=== PATIENT | male | born 1975 | race Caucasian/White ===

== ENCOUNTER 2023-12-09 06:27 | Outpatient (OUT) | payer OTHER, SELFPAY ==
[2023-12-09 07:09] LABS: Chol HDL Ratio 3.3; Cholesterol 152 mg/dL (<=200); Glucose 111 mg/dL (74-106); HDL Cholesterol 46 mg/dL (40-60); LDL Cholesterol Calculated 92.8 mg/dL; Triglycerides 66 mg/dL (<=150); VLDL CHOLESTEROL 13.2 mg/dL
== END 2023-12-09 06:28 | disposition home or self-care (01) ==
LOC: LAB 06:32
PROVIDERS: PCP Internal Medicine; Visit Provider Internal Medicine
DX: Z00.00 Encounter for general adult medical examination without abnormal findings (principal)
CPT/HCPCS: 36415; 80061; 82947

== ENCOUNTER 2025-01-11 06:52 | Outpatient (OUT) | payer OTHER, SELFPAY ==
--- OUTSIDE RECORDS SUMMARY | 2025-01-11 06:55 | XMS_ITS | CCD ---
Author Organization [facility] Care Team Providers Care Forensic Materials Engineer Name Role Phone DR VASQUEZ ELIZABETH Attending Unavailable GLENN, DR RICHTER Consulting Unavailable GLENN, DR RICHTER Primary Care Unavailable GLENN, DR RICHTER Admitting Unavailable Vasquez Elizabeth Unavailable Vasquez Elizabeth DO Primary Care Provider Vasquez Elizabeth DO Attending Provider Medications Current Medications MedicationDrug Class(es)DatesSig (Normalized)Sig (Original)amLODIPine 10 mg oral tablet (14 sources)Dihydropyridine Calcium Channel BlockerStart: 12-04-2023 End: 26-40-9317sgvv 1 tablet by mouth once dailyAmlodipine 10 mg tablet Active 10 MG PO Daily December 01, 2024 11:32am Complies with drug therapyStart: 08-18-2023 End: 51-38-0145rwbf 1 tablet by mouth once dailyAmlodipine 10 mg tablet Discontinued 0 .ROUTE .COMPLEX August 18, 2023 5:16pm December 04, 2023 1 2:03pm TAKE 1 TABLET BY MOUTH EVERY DAYStart: 05-23-2021 End: 83-97-5464aibf 1 tablet by mouth once dailyAmlodipine 10 mg tablet Discontinued 10 MG PO Daily May 23, 2021 12:00am August 18, 2023 5:16pm celecoxib 200 mg oral capsule (3 sources)Nonsteroidal Anti-inflammatory DrugStart: 03-56-8992susk 1 capsule by mouth every twenty-four hoursCelecoxib 200 MG 1 capsule with food Orally Once a day for 30 days Sep, ActivehydroCHLOROthiazide 12.5 mg / telmisartan 80 mg oral tablet (1 source)Thiazide Diuretic, Angiotensin 2 Receptor BlockerStart: 66-17-1159dijh 1 tablet by mouth once dailyTelmisartan-Hydrochlorothiazid 80-12.5 mg tablet Active 1 TAB PO Daily December 01, 2024 12:00am Complies with drug therapyolopatadine 1 mg/ml ophthalmic solution (3 sources)Histamine-1 Receptor InhibitorStart: 37-03-9955bgmk 1 drop(s) into the eye(s) twice dailyOlopatadine HCl 0.1 % 1 drop into affected eye Ophthalmic Twice a day for 30 days Mar, Active Completed/Discontinued Medications MedicationDrug Class(es)DatesSig (Normalized)Sig (Original)losartan potassium 100 mg oral tablet (10 sources)Angiotensin 2 Receptor BlockerStart: 08-23-2024 End: 84-73-4079qgfx 1 tablet by mouth once dailyLosartan 100 mg tablet Discontinued 0 .ROUTE .COMPLEX November 21, 2024 8:50am December 01, 2024 11:33am TAKE 1 TABLET BY MOUTH EVERY DAY FOR 90 DAYSStart: 05-23-2021 End: 43-73-5589lypm 1 tablet by mouth once dailyLosartan 100 mg tablet Discontinued 100 MG PO Daily December 04, 2023 12:02pm August 23, 2024 7:38am Problems Active Problems Problem ClassificationProblemDateDocumented DateEpisodic/ChronicAbdominal hernia (4 sources)Umbilical hernia; Translations: [Umbilical hernia without obstruction or gangrene]22-35-5845PdamtiodNlmnjurspm disorders (6 sources)Gastro-esophageal reflux disease with esophagitis; Translations: [Gastroesophageal reflux disease with esophagitis without hemorrhage]12-02-2023 ChronicEssential hypertension (9 sources)Essential hypertension; Translations: [Essential (primary) hypertension]ChronicOsteoarthritis (5 sources)Osteoarthritis of left hip joint; Translations: [Unilateral primary osteoarthritis, left hip]ChronicOther nutritional; endocrine; and metabolic disorders (2 sources)Obesity; Translations: [Obesity, unspecified]03-23-4156DzjzmzpFdcdn screening for suspected conditions (not mental disorders or infectious disease) (3 sources)Patient encounter status; Translations: [Encounter for screening for malignant neoplasm of prostate]18-06-3430MixtusluQiyndiof codes; unclassified (6 sources)Obstructive sleep apnea syndrome; Translations: [Obstructive sleep apnea (adult) (pediatric)]59-40-5177GvrsgbvOswtteim codes; unclassified (2 sources)Obstructive sleep apnea (adult) (pediatric)ChronicSubstance-related disorders (5 sources)Tobacco dependence in remission; Translations: [Nicotine dependence, cigarettes, in remission]Chronic Past or Other Problems Problem ClassificationProblemDateDocumented DateEpisodic/ChronicEsophageal disorders (2 sources)Esophageal disorders Results Test NameValueInterpretationReference RangeDelmiuniversity hospitals parma medical centerDominik 05-24-2021 Specimen: [id number] Received: 05/24/21 Status: VALERIA Sandoval Num: [id number] Spec Type: Surgical Subm Dr: Ben Barrios MD Tissues: A Colon - Polyp (TRANSVERSE COLON) Procedures: HE Stain/4, Gross/Micro L4 Patient Age/Sex Location Account Attending Physician Nuno Ruiz 45/M [id number] Ben Barrios MD SPEC NUM: [id number] RECD: 05/24/21 STATUS: VALERIA SANDOVAL NUM: [id number] SUKHDEV: 05/24/21- [facility] DR: Ben Barrios MD ENTERED: 05/24/[address] [facility] [address]: SPEC TYPE: Surgical DEPT: S ORDERED: HE Stain/4, Gross/Micro L4 ORDERED: HE Stain/4, Gross/Micro L4 Pathological Diagnosis Transverse colon polyps, polypectomy: - Multiple fragments of tubular adenoma. Clinical Information Positive cologuard Gross Description Received in formalin labeled with the patient's name, number and transverse colon polyps are multiple mathews tissue fragments measuring up to 0.6 cm. The resection margin on the 2 largest tissue fragments are differentially inked and each fragment is bisected. Entirely submitted in two cassettes labeled A1-A2. Type of Fixative: 10% Neutral Buffered Formalin (/YJ) Microscopic Description Four glass slides with H E stained material have been examined. The microscopic findings support the above pathologic diagnosis. Specimen: Received: 05/24/21 Status: EDNAHema Sandoval Num: [id number] Spec Type: Surgical Subm Dr: Ben Barrios MD Tissues: A Colon - Polyp (TRANSVERSE COLON) Procedures: HE Stain/4, Gross/Micro L4 Patient: Nuno Ruiz [id number] (Continued) Specimen: [id number] Received: 05/24/21 (Continued) Signed (signature on file) Licha Kelly MD 05/25/21 1707 Specimen: [id number] Received: 05/24/21 Status: EDNAHema Sandoval Num: [id number] Spec Type: Surgical Subm Dr: Ben Barrios MD Tissues: A Colon - Polyp (TRANSVERSE COLON) Procedures: BABITA Benitez/4, Gross/Micro L4 Patient: Nuno Ruiz [id number] (Continued) Specimen: Received: 05/24/21 (Continued) CPT Codes 25297 Specimen: Received: 05/24/21 Status: VALERIA Sandoval Num: [id number] Spec Type: Surgical Subm Dr: Ben Barrios MD Tissues: A Colon - Polyp (TRANSVERSE COLON) Procedures: BABITA Benitez/Laura, Gross/Elizabeth L4 Patient: Nuno Ruiz [id number] (Continued) Signed (signature on file) Licha Kelly MD 05/25/21 1702 [facility] HospitalC[facility] Antigenon 89-62-9704CAFUV- AntigenHealthcare Worker?: N Radha Reference Radha Reference Negative SARS-CoV+SARS-CoV-2 (COVID-19) Ag [Presence] in Respiratory specimen by Rapid immunoassay Negative for SARS Antigen by SANJU COVID19 Blank Space Radha Disclaimer Negative results, from patients with symptom Radha Disclaimer onset beyond five days, should be treated as Radha Disclaimer presumptive and confirmation with a molecular Radha Disclaimer assay, if necessary, for patient management, Radha Disclaimer may be performed. Negative results do not rule Radha Disclaimer out COVID-19 and should not be used as the sole Radha Disclaimer basis for treatment or patient management Radha Disclaimer decisions, including infection control decisions. Radha Disclaimer Negative results should be considered in the Radha Disclaimer context of a patient's recent exposures, history Radha Disclaimer and the presence of clinical signs and symptoms Radha Disclaimer consistent with COVID-19. COVID19 Blank Space Radha Disclaimer The Radha SARS Antigen SANJU does not differentiate Radha Disclaimer between SARS-CoV and SARS-CoV-2. COVID19 Blank Space Radha Disclaimer This test was developed and its performance Radha Disclaimer characteristic determined by [employer] and Radha Disclaimer validated at [facility]. This Radha Disclaimer test has not been FDA cleared or approved. This Radha Disclaimer test has been authorized by FDA under an Emergency Use Radha Disclaimer Authorization (EUA). This test has been validated Radha Disclaimer in accordance with the FDA's Guidance Document (Policy Radha Disclaimer for Diagnostics Testing in Laboratories Certified to Radha Disclaimer Perform High Complexity Testing under CLIA prior to Radha Disclaimer Emergency Use Authorization for Coronavirus Radha Disclaimer iseas during the Public Health Emergency) Radha Disclaimer issued on May 20, 2019. This test is only authorized Radha Disclaimer for the duration of time the declaration that Radha Disclaimer circumstances exist justifying the authorization of Radha Disclaimer the emergency use of in vitro diagnostic tests for Radha Disclaimer detection of SARS-CoV-2 virus and/or diagnosis of Radha Disclaimer COVID-19 infection under section 564(b)(1) of the Radha Disclaimer Act, 21 U.S.C. 360bbb-3(b)(1), unless the Radha Disclaimer authorization is terminated or revoked sooner. PERFORMED BY: [place] [id number] PATHOLOGIST SPECIAL PROJECTS COORDINATOR JONO CONTRERAS M.D.NormalTrihealthComment on above: Performed By: #### COVID-19 RADHA, SOFIANEG #### [address] [address] [place]ASofia Ag Negativeon 30-41-3824Rfeam Ag NegativeNegative NormalNegativeTrihealthComment on above:Result Comment: This is a duplicate Radha SARS Antigen (SANJU) result to be used for statistical tracking purpose only. PERFORMED BY: [address] [address] PATHOLOGIST SPECIAL PROJECTS COORDINATOR JONO CONTRERAS M.D.Performed By: #### COVID-19 RADHA, SOFIANEG #### [facility] [address] AUTO DIFFon [id number] #0.1 103/ulNormal0.0-0.1The [facility] HospitalComment on above:Performed By: #### CBC #### [facility] [address] [place] [address] Dr. Syed LoweBasophils/100 WBC (Bld)1.1 %Normal0.2-2.0The [facility] Comment on above:Performed By: #### CBC #### [facility] [address] [place] [address] Dr. Syed Samano #0.2 103/ulNormal0.0-0.7The [facility] HospitalComment on above: Performed By: #### CBC #### [facility] [address] [place] [address] Dr. Syed Kennedyosinophils/100 WBC (Bld)3.2 %Normal0.9-7.0[facility] Comment on above:Performed By: #### CBC #### [facility] [address] [place] [address] Dr. Syed Kennedyrythrocyte distribution width (RBC) [Ratio]12.5 %Zlryka20.0-15.0 The [facility] HospitalComment on above:Performed By: #### CBC #### [facility] [address] [place] [address] Dr. Syed LoweHematocrit (Bld) [Volume fraction]43.7 %Nudfxo23.0-54.0The [facility] HospitalComment on above:Performed By: #### CBC #### [facility] [address] [place] [address] Dr. Syed LoweHemoglobin (Bld) [Mass/Vol]14.9 g/zDJuopjd05.0-18.0The [facility] HospitalComment on above:Performed By: #### CBC #### [facility] [address] [place] [address] Dr. Syed Kaplan #0.11 10e3/ulCritically high0.00-0.03The [facility] Comment on above:Performed By: #### CBC #### [facility] [address] [place] [address] Dr. Syed Kaplan %1.8 %Critically high0.0-0.5The [facility] HospitalComment on above:Performed By: #### CBC #### [facility] [address] [place] [address] Dr. Syed Oneal #1.8 103/ulNormal1.2-3.8The [facility] HospitalComment on above:Performed By: #### CBC #### [facility] [address] [place] [address] Dr. Syed Pritchetthocytes/100 WBC (Bld)28.3 %Oasevz74.5-60.0The [facility] HospitalComment on above:Performed By: #### CBC #### [facility] [address] [place] [address] Dr. Syed EstrellaOHIO VALLEY [facility] DIFF REQNONormalThe [facility] HospitalComment on above: Performed By: #### CBC #### [facility] [address] [place] [address] Dr. Syed Caraballo (RBC) [Entitic mass]28.8 vaMswlio08.9-34.0The [facility] HospitalComment on above:Performed By: #### CBC #### [facility] [address] [place] [address] Dr. Syed Valenzuela (RBC) [Mass/Vol]34.1 g/mDNvebsw98.9-35.2The [facility] HospitalComment on above:Performed By: #### CBC #### [facility] [address] [place] [address] Dr. Syed Valenzuela (RBC) [Entitic vol]84.5 mYSjqyvs18.0-94.0The [facility] HospitalComment on above:Performed By: #### CBC #### [facility] [address] [place] [address] Dr. Syed Orr #0.6 103/ulNormal0.3-0.8The [facility] HospitalComment on above:Performed By: #### CBC #### [facility] [address] [place] [address] Dr. Syed Villarocytes/100 WBC (Bld)9.1 %Normal1.7-12.0The [facility] Comment on above:Performed By: #### CBC #### [facility] [address] [place] [address] Dr. Syed Terry #3.5 103/ulNormal1.4-6.5The [facility] HospitalComment on above:Performed By: #### CBC #### [facility] [address] [place] [address] Dr. Syed Mattautrophils/100 WBC (Bld)56.5 %Cnqlrb18.0-75.0The [facility] HospitalComment on above:Performed By: #### CBC #### [facility] [address] [place] [address] Dr. Syed Mabrylet mean volume (Bld) [Entitic vol]9.7 fLNormal9.5-13.5The [facility] HospitalComment on above:Performed By: #### CBC #### [facility] [address] [place] [address] Dr. Syed HernandezT263 103/ypIqrpsm196-111Tic [facility] HospitalComment on above: Performed By: #### CBC #### [facility] [address] [place] [address] Dr. Syed LoweRBC5.17 106/ulNormal4.70-6.10The [facility] HospitalComment on above:Performed By: #### CBC #### [facility] [address] [place] [address] Dr. Syed LoweWBC6.2 103/ulNormal4.0-11.0The [facility] HospitalComment on above: Performed By: #### CBC #### [facility] [address] [place] [address] Dr. Syed Sotomayor PROFILEon 62-66-9465IDHE-HDL RATIO NORMSProtestant Deaconess HospitalComment on above:Result Comment: 3.3 - 4.4 LOW RISK 4.4 - 7.1 AVERAGE RISK 7.1 - 11.0 MODERATE RISK >11.0 HIGH RISKPerformed By: #### CMP, LIPID #### [facility] [address] [address] [address] Syed LoweCholesterol [Mass/Vol]156 mg/dLNormal<=200[facility] Comment on above:Performed By: #### CMP, LIPID #### [facility] [address] [address] [address] Syed LoweCholesterol in HDL [Mass/Vol]43 mg/dLParkwood Hospital Comment on above:Performed By: #### CMP, LIPID #### [facility] [address] [address] [address] Syed LoweCholesterol in LDL [Mass/Vol]97.6 mg/dLParkwood HospitalComment on above:Performed By: #### CMP, LIPID #### [facility] [address] [address] [address] Syed Gallardoesterchema.total/Cholesterol in HDL [Mass ratio]3.6 {ratio} NormalPremier HealthComment on above:Performed By: #### CMP, LIPID #### [facility] [address] [address] [address] Syed Garcia NORMAL> or = 60 mg/dl - LOW CARDIOVASCULAR RISK <40 mg/dl - HIGH CARDIOVASCULAR RISKParkwood HospitalComment on above:Performed By: #### CMP, LIPID #### [facility] [address] [address] [address] Syed LoweLDL CALC NORMALSEE Newark HospitalComment on above:Result Comment: <100 mg/dl OPTIMAL 100 - 129 mg/dl NEAR OR ABOVE OPTIMAL 130 - 159 mg/dl BORDERLINE HIGH 160 - 189 mg/dl HIGH >190 mg/dl VERY HIGH Performed By: #### CMP, LIPID #### [facility] [address] [address] [address] Syed LoweTriglyceride [Mass/Vol]77 mg/dLNormal<=150The [facility] Comment on above:Performed By: #### CMP, LIPID #### [facility] [address] [address] [address] Syed LoweVLDL CALC15.4 mg/dLNormalThe [facility] HospitalComment on above: Performed By: #### CMP, LIPID #### [facility] [address] [address] [address] Syed LowePROF 14(COMP METB)on 81-54-5225Szgxjzv [Mass/Vol]3.8 g/dLNormal 3.5-5.0The [facility] HospitalComment on above:Performed By: #### CMP, LIPID #### [facility] [address] [place] [address] Dr. Syed LoweAlbumin/Globulin [Mass ratio]1.1 {ratio}NormalThe [facility] HospitalComment on above:Performed By: #### CMP, LIPID #### [facility] [address] [place] [address] Dr. Syed Sosa [Catalytic activity/Vol]72 U/GGeyqso25-222Bnn [facility] HospitalComment on above:Performed By: #### CMP, LIPID #### [facility] [address] [place] [address] Dr. Syed Swanson [Catalytic activity/Vol]23 U/UGxzfbq03-62Xpf [facility] HospitalComment on above:Performed By: #### CMP, LIPID #### [facility] [address] [place] [address] Dr. Syed Christensen gap [Moles/Vol]8.4 mmol/LNormalThe [facility] HospitalComment on above:Performed By: #### CMP, LIPID #### [facility] [address] [place] [address] Dr. Syed LoweAST [Catalytic activity/Vol]13 U/LCritically net63-59Jlq [facility] HospitalComment on above:Performed By: #### CMP, LIPID #### [facility] [address] [address] [address] Syed LoweBilirubin [Mass/Vol]0.5 mg/dLNormal0.2-1.3The [facility] Comment on above:Performed By: #### CMP, LIPID #### [facility] [address] [address] [address] Syed LoweCalcium [Mass/Vol]8.9 mg/dLNormal8.4-10.2The [facility] Comment on above:Performed By: #### CMP, LIPID #### [facility] [address] [address] [address] Syed LoweChloride [Moles/Vol]104 mmol/LSzedzn03-935Oap [facility] Comment on above:Performed By: #### CMP, LIPID #### [facility] [address] [address] [address] Syed LoweCO2 [Moles/Vol]30.2 mmol/LCritically high22.0-30.0The [facility] HospitalComment on above:Performed By: #### CMP, LIPID #### [facility] [address] [address] [address] Syed LoweCreatinine [Mass/Vol]0.95 mg/dLNormal0.66-1.25The [facility] HospitalComment on above:Performed By: #### CMP, LIPID #### [facility] [address] [address] [address] Syed KennedyGFR-AF SOUTH AFRICAN>60Normal>=60The [facility] HospitalComment on above:Performed By: #### CMP, LIPID #### [facility] [address] [address] [address] Syed KennedyGFR-NON AF SOUTH AFRICAN>60Normal>=60The [facility] HospitalComment on above:Performed By: #### CMP, LIPID #### [facility] [address] [place] [address] Dr. Syed LoweGlobulin (S) [Mass/Vol]3.4 g/dLNormalThe [facility] HospitalComment on above:Performed By: #### CMP, LIPID #### [facility] [address] [address] [address] Syed LoweGlucose [Mass/Vol]98 mg/xTOsqrsv24-679QrtPremier Health Comment on above:Performed By: #### CMP, LIPID #### [facility] [address] [address] [address] Syed LowePotassium [Moles/Vol]3.6 mmol/LNormal3.4-5.0The [facility] Comment on above:Performed By: #### CMP, LIPID #### [facility] [address] [address] [address] Syed LoweProtein [Mass/Vol]7.2 g/dLNormal6.1-8.2[facility] Comment on above:Performed By: #### CMP, LIPID #### [facility] [address] [address] [address] Syed LoweSodium [Moles/Vol]139 mmol/XUjirxl727-622Ieu [facility] Comment on above:Performed By: #### CMP, LIPID #### [facility] [address] [address] [address] Syed LoweUrea nitrogen [Mass/Vol]15.0 mg/dLNormal9.0-20.0[facility] HealthComment on above:Performed By: #### CMP, LIPID #### [facility] [address] [address] [address] Syed Domingo nitrogen/Creatinine [Mass ratio]15.8 mg/mgNormalThe [facility] HospitalComment on above:Performed By: #### CMP, LIPID #### [facility] [address] [address] [address] Lynch ChangED Note-Physicianon [id number] Note-PhysicianBasic Information Time Seen: Matt Garcia PA-C 07/22/2020 15:42 Chief Complaint Pt states working with lumbar 1445 cut his left middle finger while lifting lumbar. Tetanus not up to date History of Present Illness 45-year-old male presents emergency department chief complaint of a 2 cm flap laceration to the fat pad of the left middle finger. Patient states that he got his fingertip crushed between lumber while stacking the wood, causing the laceration. He is unsure of his last tetanus immunizationbooster but believes it to be greater than 5 years. He does state that the tip of the fingertip is numb, denies difficulty with range of motion or movement. Review of Systems A 10 point review of systems is negative except as noted above. Medical and Surgical History: Reviewed and noted Social history: Lives at home Tobacco: Denies Physical Exam Vitals & Measurements T: 36.7 ?C (Oral) HR: 97(Peripheral) RR: 18 BP: 157/91 SpO2: 98% HT: 178 cm HT: 178.0 cm WT: 86 kg WT: 86.0 kg BMI: 27.14 General: Alert and oriented, No acute distress, Comfortable in bed. Eye: Pupils are equal, round and reactive to light, Extraocular movements are intact. HENT: Normocephalic. Musculoskeletal: Normal range of motion, Normal strength. Neurologic: Alert, Oriented, Normal sensory, Normal motor function. Cognition and Speech: Oriented, Speech clear and coherent. Psychiatric: Cooperative, Appropriate mood & affect. Integumentary: Warm, Dry, [place] 2 cm flap-like laceration to the distal phalanx of the left middle finger. Bleeding is controlled, no visible foreign body. Procedure Finger was anesthetized with 3 cc of 1% Xylocaine without epinephrine in a digital block fashion. Wound was then copiously scrubbed and irrigated with Hibiclens and saline. Explored for foreign body or deep tissue involvement none visualized. Wound was then repaired using 8, 5.0, nylon simple erupted sutures, good wound edge approximation was achieved, patient tolerated the procedure well with noadverse effects. Medical Decision Making Laceration was repaired as above. He is placed in an AlumaFoam splint. His tetanus status was updated. He is to have the sutures removed in 10 days, return should signs of infection develop or other problems arise. He understood and agreed with the plan. Assessment/Plan Ordered: Dressing Care/Change Finger Splint Application Wound Care Routine XR Finger(s) Min 2 Views Left Medications Administered Given bacitracin/neomycin/polymyxin B Top Oint, 1 darling, Topical lidocaine 1% Injection 20 mL, 30 mg, SubCutaneous tetanus/diphtheria/pertussis, acel (Tdap) 5 units-2 units-15.5 mcg/0.5 mL IM Susp 0.5 mL, 0.5 mL, IntraMuscular diphtheria/pertussis, acel/tetanus adult, IntraMuscular Disposition Plan Patient Discharge Condition Stable Discharge Disposition Discharge home Discharge Prescription List Prescriptions No active prescription medications Follow-up No qualifying data available Problem List/Past Medical History Ongoing Smoker Historical HTN (hypertension) Procedure/Surgical History back tumor removal, Vasectomy. Medications Inpatient bacitracin/neomycin/polymyxin B Top Oint, 1 darling, Topical, TID Home benazepril-hydrochlorothiazide 20 mg-12.5 mg Tab, 1 tab(s), Oral, Daily [place] 325 mg-5 mg oral tablet, 2 tab(s), Oral, q4hr, PRN Allergies No Known Allergies Social History Alcohol - Denies Alcohol Use, 12/16/2014 Current, 1-2 times per year, 07/22/2020 Substance Abuse Current, 07/22/2020 Tobacco Vaping, 07/22/2020 Current Every Day Smoker, Cigarettes, 12/16/2014 Lab Results No qualifying data available. Diagnostic Results XR Finger(s) Min 2 Views Left 07/22/20 16:24:32 : 3 view left middle finger, soft tissue swelling, no fracture Read By: Matt Garcia PA-C 07/22/20 16:26:17 IMPRESSION: Negative CLINICAL INFORMATION: Pain, Traumatic COMPARISON: None. FINDINGS: 3 views of the right third finger show soft tissue defect overlying the distal phalanx. The bones are intact. No acute fracture or dislocation. No radiopaque foreign body. Signed By: Yared Moralez MD Diagnosis: Laceration left middle fingerMercy Health Tiffin HospitalComment on above:Result Comment: Electronically Signed By: Matt Garcia PA-C\.br\Date and Time Signed: 08/27/20 08:26 EDT\.br\Electronically Co- Signed By: Adolph Lee DO\Date and Time Co-Signed: 09/09/20 15:22 EDT Coding Summary.on 22-47-4546Kqkena Summary. CD:[id number] [file] c2U6 (more content not included)...[facility] HospitalConsent for Treatmenton 58-20-8808Wfojnnz for Treatment [id number]:127[facility] HospitalDischarge Instructionson 61-23-9076Mvilcutrx Instructions [id number]:127[facility] Clinical Summaryon [id number] Clinical Summary [place] [id number] ED Clinical Summary Person Information Name: NUNO RUIZ [facility] Age: 45 Years : 1975 Sex: Male Language: Citizen Of [place] PCP: VASQUEZ ELIZABETH DO Marital Status: Phone: [phone] Visit Id: Visit Reason: Finger laceration; laceration left middle finger Speciality: Acuity: 4 Enc Type: Emergency Med Service: Emergency Arrival: 07/22/2020 15:39:43 Discharge: 07/22/2020 17:49:19 LOS: 000 02:10 Checkin: 07/22/2020 15:39:43 Checkout: 07/22/2020 17:49:19 Dispo Type: Home (Routine DC) EVENTS: Event Name Event Status Request Date/Time Start Date/Time Complete Date/Time Arrive Complete 07/22/2020 15:39:43 07/22/2020 15:39:43 07/22/2020 15:39:43 Document Home Meds Request 07/22/2020 15:39:43 Triage Complete 07/22/2020 15:39:43 07/22/2020 15:51:35 07/22/2020 15:51:35 Dr Exam Complete 07/22/2020 15:42:01 07/22/2020 15:42:01 07/22/2020 15:42:01 Registration Complete 07/22/2020 15:42:01 07/22/2020 15:45:18 07/22/2020 15:45:18 Reg Complete Request 07/22/2020 15:45:18 Bed Assign Complete 07/22/2020 15:46:39 07/22/2020 15:46:39 07/22/2020 15:46:39 RN Exam Complete 07/22/2020 15:46:39 07/22/2020 15:54:48 07/22/2020 15:54:48 Patient Care Complete 07/22/2020 15:49:57 07/22/2020 15:55:02 Meds Admin Request 07/22/2020 15:56:34 Patient Care Request 07/22/2020 15:56:34 X-Ray Complete 07/22/2020 16:00:13 07/22/2020 16:05:36 07/22/2020 16:15:05 Dr Exam Complete 07/22/2020 16:01:35 07/22/2020 16:01:35 07/22/2020 16:01:35 Registration Complete 07/22/2020 16:01:35 07/22/2020 16:51:11 07/22/2020 16:51:11 Wet Read Request 07/22/2020 16:15:05 Discharge Complete 07/22/2020 17:05:03 07/22/2020 17:49:30 07/22/2020 17:49:30 Transfer Complete 07/22/2020 17:49:30 07/22/2020 17:49:30 07/22/2020 17:49:30 ADDRESS: [address] [place] [address] [facility] [id number] [facility] DOC NOTES: MEDICAL INFORMATION: Prescriptions Given: Medications to Continue with No Changes Other Medications acetaminophen-hydrocodone ([place] 325 mg-5 mg oral tablet) 2 Tablets By Mouth every 4 hours as needed for pain. Refills: 0. benazepril-hydrochlorothiazide (benazepril-hydrochlorothiazide 20 mg-12.5 mg Tab) 1 Tablets By Mouth every day. PATIENT EDUCATION INFORMATION: Instructions: Crush Injury of the Hand; Sutured Wound Care Follow up: With: Address: When: VASQUEZ ELIZABETH [address] [facility] [place] [address] Business (1) In 3 days 07/25/2020 Comments: Keep the wound clean dry and covered, use Neosporin to the wound. Watch the wound for signs of infection, return should any appear. Change the dressing daily with fresh bacitracin. Wear the splint for the next 3 days. Have the sutures removed in 10 days. DIAGNOSIS: 1:Crushing injury of left middle finger; 2:Laceration of left middle finger [facility] Patient Education Noteon 38-90-3261KA Patient Education NoteDermatology Sutured Wound Care Sutures are stitches that can be used to close wounds. Taking care of your wound properly can help to prevent pain and infection. It can also help your wound to heal more quickly. Follow instructionsfrom your health care provider about how to care for your sutured wound. Supplies needed: ? Soap and water. ? A clean bandage (dressing), if needed. ? Antibiotic ointment. ? A clean towel. How to care for your sutured wound ? Keep the wound completely dry for the first 24 hours, or for as long as directed by your health care provider. After 24?48 hours, you may shower or bathe as directed by your health care provider. Do not soak or submerge the wound in water until the sutures have been removed. ? After the first 24 hours, clean the wound once a day, or as often as directed by your health careprovider, using the following steps: ? Wash the wound with soap and water. ? Rinse the wound with water to remove all soap. ? Pat the wound dry with a clean towel. Do not rub the wound. ? After cleaning the wound, apply a thin layer of antibiotic ointment as directed by your health care provider. This will prevent infection and keep the dressing from sticking to the wound. ? Follow instructions from your health care provider about how to change your dressing: ? Wash your hands with soap and water. If soap and water are not available, use hand edge trimming machine operator. ? Change your dressing at least once a day, or as often as told by your health care provider. If your dressing gets wet or dirty, change it. ? Leave sutures and other skin closures, such as adhesive tape or skin glue, in place. These skin closures may need to stay in place for 2 weeks or longer. If adhesive strip edges start to loosen andcurl up, you may trim the loose edges. Do not remove adhesive strips completely unless your health care provider tells you to do that. ? Check your wound every day for signs of infection. Watch for: ? Redness, swelling, or pain. ? Fluid or blood. ? Warmth. ? Pus or a bad smell. ? Have the sutures removed as directed by your health care provider. Follow these instructions at home: Medicines ? Take or apply zzpm-zec-qkxgcmq and prescription medicines only as told by your health care provider. ? If you were prescribed an antibiotic medicine or ointment, take or apply it as told by your health care provider. Do not stop using the antibiotic even if your condition improves. General instructions ? To help reduce scarring after your wound heals, cover your wound with clothing or apply sunscreenof at least 30 SPF whenever you are outside. ? Do not scratch or pick at your wound. ? Avoid stretching your wound. ? Raise (elevate) the injured area above the level of your heart while you are sitting or lying down, if possible. ? Drink enough fluids to keep your urine clear or pale yellow. ? Keep all follow-up visits as told by your health care provider. This is important. Contact a health care provider if: ? You received a tetanus shot and you have swelling, severe pain, redness, or bleeding at the injection site. ? Your wound breaks open. ? You have redness, swelling, or pain around your wound. ? You have fluid or blood coming from your wound. ? Your wound feels warm to the touch. ? You have a fever. ? You notice something coming out of your wound, such as wood or glass. ? You have pain that does not get better with medicine. ? The skin near your wound changes color. ? You need to change your dressing very frequently due to a lot of fluid, blood, or pus draining from the wound. ? You develop a new rash. ? You develop numbness around the wound. Get help right away if: ? You develop severe swelling around your wound. ? You have pus or a bad smell coming from your wound. ? Your pain suddenly gets worse and is severe. ? You develop painful lumps near your wound or anywhere on your body. ? You have a red streak going away from your wound. ? The wound is on your hand or foot and: ? You cannot properly move a finger or toe. ? Your fingers or toes look pale or bluish. ? You have numbness that is spreading down your hand, foot, fingers, or toes. Summary ? Sutures are stitches that can be used to close wounds. ? Taking care of your wound properly can help to prevent pain and infection. ? Keep the wound completely dry for the first 24 hours, or for as long as directed by your health care provider. After 24?48 hours, you may shower or bathe as directed by your health care provider. This information is not intended to replace advice given to you by your health care provider. Make sure you discuss any questions you have with your health care provider. Document Released: 03/13/2005 Document Revised: 01/16/2018 Document Reviewed: 03/11/2017 [email or web address] Patient Education ? 2019 [employer] Orthopedics Crush Injury of the Hand When a crush injury of the hand occurs, ma (more content not included)...Normal [facility] Patient Summaryon 67-90-4395LO Patient Summary [place] [id number] Patient Discharge Instructions Person Information Name: NUNO RUIZ Age: 45 Years Arrival Date: 07/22/2020 15:39:43 Discharge Diagnosis: 1:Crushing injury of left middle finger; 2:Laceration of left middle finger Primary Care Physician: VASQUEZ ELIZABETH DO Provider Information Primary Provider: Adolph Lee DO Advanced Patent Attorney:Matt Garcia PA-C The exam and treatment you received in the Emergency Department were for an urgent problem and are not intended as complete care. It is important that you follow up with a doctor, nurse practitioner,or physician?s operator/assistant foreman for ongoing care. If your symptoms become worse or you do not improve as expected and you are unable to reach your usual health care provider, you should return to the Emergency Department. We are available 24 hours a day. SARANUNO BOYKIN has been given the following list of patient education materials, prescriptions and follow-up instructions: Follow-up Instructions: With: Address: When: VASQUEZ ELIZABETH [address] [facility] [place] [id number] [facility] (1) In 3 days 07/25/2020 Comments: Keep the wound clean dry and covered, use Neosporin to the wound. Watch the wound for signs of infection, return should any appear. Change the dressing daily with fresh bacitracin. Wear the splint for the next 3 days. Have the sutures removed in 10 days. In the event that this physician does not participate in your insurance network, please consult with your insurance company to find a nearby participating provider. Patient Education Materials: Crush Injury of the Hand; Sutured Wound Care A MESSAGE TO ALL PATIENTS REGARDING OPIOIDS PRESCRIPTION OPIOIDS: WHAT YOU NEED TO KNOW Prescription opioids can be used to help relieve kgfwqqae-nn-wqlqsw pain and are often prescribed following a surgery or injury, or for certain health conditions. These medications can be an important part of the treatment but also come with serious risks. It is important to work with your healthcare provider to make sure you are getting the safest, most effective care. WHAT ARE THE RISKS AND SIDE EFFECTS OF OPIOID USE? Prescription opioids carry serious risks of addiction and overdose, especially with prolonged use. An opioid overdose, often marked by slowed breathing, can cause sudden . The use of prescription opioids can have a number of side effects as well, even when taken as directed: ? Tolerance?meaning you might need to take more of the medication for the same pain relief ? Physical dependence?meaning you have symptoms of withdrawal when a medication is stopped ? Increased sensitivity to pain ? Constipation ? Nausea, vomiting, and dry mouth ? Sleepiness and dizziness ? Confusion ? Depression ? Low levels of testosterone that can result in lower sex drive, energy, and strength ? Itching and sweating RISKS ARE GREATER WITH: ? History of drug misuse, substance use disorder, or overdose ? Mental health conditions (such as depression or anxiety) ? Sleep apnea ? Older age (65 years and older) ? Avoid alcohol while taking prescription opioids. Also, unless specifically advised by your health care provider, medications to avoid include: ? Benzodiazepines (such as Xanax or Valium) ? Muscle relaxants (such as Soma or Flexeril) ? Hypnotics (such as Ambien or Lunesta) ? Other prescription opioids KNOW YOUR OPTIONS Talk to your health care provider about ways to manage your pain that don?t involve prescription opioids. Some of these options may actually work better and have fewer risks and side effects. Optionsmay include: ? Pain relievers such as acetaminophen, ibuprofen, and naproxen ? Some medication that are also used for depression or seizures ? Physical therapy and exercise ? Cognitive behavioral therapy, a psychological, goal-directed approach, in which patients learn how to modify physical, behavioral, and emotional triggers of pain and stress. IF YOU ARE PRESCRIBED OPIOIDS FOR PAIN: ? Never take opioids in greater amounts or more often than prescribed. ? Follow up with your primary health care provider. o Work together to create a plan on how to manage your pain. o Talk about ways to help manage your pain that don?t involve prescription opioids. o Talk about any and all concerns and side effects. ? Help prevent misuse and abuse o Never sell or share prescription opioids. o Never use another person?s prescription opioids. ? Store prescription opioids in a secure place and out of reach of others (this may include visitors, children, friends, and family). ? Safely dispose of unused prescription opioids: Find your community drug take- back program or [employer] mail-back program, or flush them down the toilet, following guidance from (more content not included)...[facility] HospitalVaccinationson 28-50-7508Pnaubybspmdn [id number]:127[facility] HospitalXR Finger(s) Min 2 Views Lefton 80-94-8829OF Finger(s) Min 2 Views Left Exam Date/Time: 07/22/2020 16:15 EDT Reason for Exam: Pain, Traumatic Report IMPRESSION: Negative CLINICAL INFORMATION: Pain, Traumatic COMPARISON: None. FINDINGS: 3 views of the right third finger show soft tissue defect overlying the distal phalanx. The bones are intact. No acute fracture or dislocation. No radiopaque foreign body. FINAL REPORT Dictated: 07/22/2020 4:23 pm Yared Moralez MD Signed (Electronic Signature): 07/22/2020 4:23 pm Signed by: Yared Moralez MD Transcribed by: LEBRON Technologist: [facility] Vital Signs Date TimeVital SignValuePerforming OudrvnypxTyjtypwu61-48-3019 11:08-0400Body krdtyx941.8 cmBenjamin Ball DO Work Phone: [phone] [place], [place] 5654110-15-2025 11:08-0400 Body mass index (BMI) [Ratio]30.9 kg/f3Guthrgff Ball DO Work Phone: 1(419)[address] [place], [place] 5654110-15-2025 11:08-0400 Body .97 kgBenjamin Ball DO Work Phone: 1(419)[address] [place], [place] 5654110-15-2025 11:08-0400 Diastolic blood mm[Hg]Vasquez Ball DO Work Phone: 1(419)[address] [place], [place] 5654110-15-2025 11:08-0400 Heart rate89 /minBenjamin Ball DO Work Phone: 1(419)[address] [place], [place] 5654110-15-2025 11:08-0400 Respiratory rate12 /minBenjamin Ball DO Work Phone: [phone])[address] [place], [place] 5654110-15-2025 11:08-0400 Systolic blood wzbyxbrr611 mm[Hg]Vasquez Ball DO Work Phone: 1(419)[address] [place], [place] 5654108-11-2025 11:01-0400 Body bssmqu745.8 cmBenjamin Ball DO Work Phone: 1(419)[address] [place], [place] 5654108-11-2025 11:01-0400 Body mass index (BMI) [Ratio]30.9 kg/f7Ivdodszi Ball DO Work Phone: 1(419)[address] [place], [place] 5654108-11-2025 11:01-0400 Body dpsycx12.69 kgBenjamin Ball DO Work Phone: 1(419)[address] [place], [place] 5654108-11-2025 11:01-0400 Diastolic blood mm[Hg]Vasquez Ball DO Work Phone: 1(419)[address] [place], [place] 5654108-11-2025 11:01-0400 Heart rate81 /minBenjamin Ball DO Work Phone: [facility]08-11-2025 11:01-0400 Respiratory rate12 /minBenjamin Ball DO Work Phone: [facility]08-11-2025 11:01-0400 Systolic blood mmcdnkop448 mm[Hg]Vasquez Ball DO Work Phone: [facility]08-21-2023 14:00-0400 Body .8 cmBenjamin Ball Other [employer] Other 08-21-2023 14:00-0400Body mass index (BMI) [Ratio] 30.19 kg/z2Uklpzkzr Ball Other [employer] Other 08-21-2023 14:00-0400Body .44 kgBenjamin Ball Other [facility] Other 08-21-2023 14:00-0400Diastolic blood dkyrgobd96 mm[Hg] Vasquez Ball Other [facility] Other 08-21-2023 14:00-0400Respiratory rate12 /minBenjaronald Ball Other [facility] Other 08-21-2023 14:00-0400Systolic blood nemuusii859 mm[Hg] Vasquez Ball Other [employer] Other Encounters Encounter DateEncounter TypeCare ProviderFacilityStart: 12-01-2024 End: 61-00-6836anluoqlhyjQmxtsvik Ball DO Work Phone: [facility] Work Phone: Start: 12-01-2024 End: 44-80-2191Rllwhdb encounter procedureBenjamin Ball DO-[facility] Work Phone: Start: 12-01-2024 End: 78-20-2336Arauhvu encounter statusBesilvia Elizabeth DOSt. Elizabeth Hospitaltart: 09-27-2024 End: 91-72-6173fidgwoajlnDvfhkplu Ball DO Work Phone: [facility] Work Phone: Start: 09-27-2024 End: 90-63-8715Ligzqfc encounter procedureVasquez Elizabeth DO-[facility] Work Phone: Start: 60-35-3346Jdmtcgk encounter statusBesilvia Elizabeth DO [facility]: 10-07-2022 End: 87-61-9303yjbuwrzfnuXarrykcf Ball Other [place] Other Start: 28-33-1424Iiekxmjbo for general adult medical examination without abnormal findingsVasquez Elizabeth Medical ClinicStart: 43-24-0321Fbwtnhtc preventive med est patient 40-64yrsBesilvia Elizabeth Medical ClinicStart: 50-56-1383Pwoewadrl encounterBesilvia Elizabeth Medical ClinicStart: 52-65-4458Srxlsyjnh for general adult medical examination without abnormal findingsDR VASQUEZ ELIZABETHSt. John of God Hospitaltart: 04-17-2021 End: 48-00-6558ywzipzfirwIV VASQUEZ ELIZABETHFacility:S9Vvyzd: 04-17-2021 End: 57-52-5577Kfrwnansw for general adult medical examination without abnormal findingsDR VASQUEZ ELIZABETHFacility:H1 Plan of Treatment DateCare ActivityDetailAuthorComprehensive metabolic 2000 panel - Serum or PlasmaH[facility] Immunizations Immunization DateImmunizationNotesCare AvpiagxcBktrrdxs60-08-3518FOJDA-34 Vaccine Pfizer - Documentation Purposes OnlyVasquez Elizabeth Other [facility]05-19-2021COVID-19 Vaccine Pfizer - Documentation Purposes OnlyVasquez Elizabeth Other [facility]04-28-2021COVID-19 Vaccine Pfizer - Documentation Purposes OnlyVasquez Elizabeth Other [facility] Payers DatePayer CategoryPayerPolicy [id number] Social History DateTypeDetailFacilitySex Assigned At [facility] [employer] Other Tobacco smoking status NHISUnknown if ever smoked [facility] Work Phone: SexMale (finding)[facility] Start: 07-00-3475Cvp Assigned At [facility] Evaluation note 09-27-2024 Note Date & UtvtXosfDdcuzgiw93-65-0354 Evaluation note* Diagnosis Onset Date Resolution Status Admit Date Hypertension acuteAugust 2024 10:48amUmbilical herniaacuteAugust 2024 10:48amGERD (gastroesophageal reflux disease)acuteOctober 2024 10:59amHypertension acuteOctober 2024 10:59amObesityacuteOctober 2024 10:59amOSA (obstructive sleep apnea)acuteOctober 2024 10:59amScreening PSA (prostate specific antigen)acuteOctober 2024 10:59amUmbilical herniaacuteOctober 2024 10:59amWellness examinationacuteOctober 2024 10:59am [facility] Work Phone: Evaluation note 10-07-2022 Note Date & PaaxWyjmNbrkjmdg49-66-5736 Evaluation note* Encounter Date Diagnosis Assessment Notes Treatment Notes Treatment Clinical Notes Sep, Wellness examination (ICD-10 - Z 00.00) Healthy diet and exercise. Reviewed age-appropriate preventive testing recommended. Sep,rimary hypertension (ICD-10 - I10)This patient is instructed to consume a healthy, low-fat, low-salt diet. They are also encouraged to continue exercise to achieve/maintain a normal BMI. Sep,astroesophageal reflux disease with esophagitis without hemorrhage (ICD-10 - K21.00)Diet instructions: Smaller portions, avoid eating and laying flat, avoid eating or drinking prior to bedtime. Weight loss. 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 Instructed on ROM exercises, ice/heat and rest. He is requesting Celebrex - instructed to take w/ food and monitor home BP - would be best if used intermittently [facility] cicayda Other Evaluation note Note Date & TypeNoteFacilityEvaluation noteNo InformationNortEncompass Health Rehabilitation [facility] of [facility] cicayda Other Evaluation note Note Date & TypeNoteFacilityEvaluation noteNo assessment information available [facility] Work Phone: History general Narrative - Reported Note Date & TypeNoteFacilityHistory general Narrative - Reported* Type Description Date Medical History Gastro-esophageal reflux disease without esophagitis Medical HistoryObstructive sleep apnea (adult) (pediatric)Surgical History [id number] VjwyzumHHMHMWUEQ7287Usjkglwk HistoryEXCISION [id number] Surgical HistoryColonoscopy, repeat 5 years05/2021Hospitalization HistorySEE SURGICAL HX [facility] cicayda Other Reason for referral (narrative) Note Date & TypeNoteFacilityReason for referral (narrative)No reason for referral information availableRegency Hospital [facility] Work Phone: Summary Purpose Family History Relationship Condition Age at Onset Recorded Date/T yamilex Not Specified No pertinent family history Unknown fatherHypertensionUnknownmotherHypertensionUnknownDisorder of thyroidUnknown Advance Directives Advance Directive Response Recorded Date/ Time Advance Directives No September 23, 025 10:00am Chief Complaint and Reason for Visit Chief Complaint Admit Date bump above belly button September 27 10:48am Chief Complaint Admit Date bump above belly button September 27 10:48am wellness December 01, 2024 1 0:59am Reason for Visit Admit Date Hypertension September 27, 2024 10 :48am Umbilical hernia September 27, 2024 10 :48am GERD (gastroesophageal reflux disease) O ctober 2024 10:59am Hypertension December 01, 2024 1 0:59am Obesity December 01, 2024 1 0:59am SHUN (obstructive sleep apnea) December 012024 10:59am Screening PSA (prostate specific antigen ) December 01, 2024 10:59am Umbilical hernia December 01, 2024 1 0:59am Wellness examination December 01, 2024 10:59am Additional Source Comments (unrecognized sect ion and content) No Status Records FoundNo Status Records FoundNo Status Records Found INFORMATION SOURCE (unrecogn ized section and content) DATE CREATED AUTHOR 09/10/2020 [facility] DATE CREATED AUTHOR AUTHOR'S ORGANIZ ATION 04/18/2021 [facility] DATE CREATED AUTHOR AUTHOR'S ORGANIZ ATION 05/29/2021 [facility] REASON FOR VISIT (unrecogniz ed section and content) wellnessNo Informationwellne Care Teams (unrecognized sec tion and content) Team Status: Active Member Role Status Dates Vasquez Elizabeth DO Primary Care Provider Active Team Status: Inactive Member Role Status Dates Vasquez Elizabeth DO Primary Care Provider Active Start: September 27, 2024 End: September 27Toni He ProviderActiveStart: September 27, 2024 End: September 27, 2024 Team Status: Inactive Member Role Status Dates Vasquez Elizabeth DO Primary Care Provider Active Start: December 01, 2024 End: December 01enjamin Ball , DOAttending ProviderActiveStart: December 01, 2024 End: December 01, 2024 Goals (unrecognized section and content) Goals may be documented in a n alternate section FOR RECORDS PERTAINING TO PATIENTS WHO ARE OR HAVE BEEN ENROLLED IN A CHEMICAL DEPENDENCY/SUBSTANCEABUSE PROGRAM, SOME INFORMATION MAY BE OMITTED. This clinical summary was aggregated from multiple sources. Caution should be exercised in using it in the provision of clinical care. This summary normalizes information from multiple sources, and as a consequence, information in this document may materially change the coding, format and clinical context of patient data. In addition, data may be omitted in some cases. CLINICAL DECISIONS SHOULD BE BASED ON THE PRIMARY CLINICAL RECORDS. [facility] [employer] [facility]. provides no warranty or guarantee of the accuracy or completeness of information in this document.
[2025-01-11 07:15] LABS: Hematocrit 45.2 % (42.0-54.0); Hemoglobin 16.2 g/dL (14.0-18.0); Immature Granulocytes Abs Auto 0.10 10^3/uL (0.00-0.03); Immature Granulocytes Pct Auto 1.7 % (0.0-0.5); Lymphocytes Absolute Auto 1.8 10^3/uL (1.2-3.8); Mean Corpuscular HGB Conc 35.8 g/dL (29.9-35.2); Mean Corpuscular Hemoglobin 30.3 pg (25.9-34.0); Mean Corpuscular Volume 84.6 fL (80.0-94.0); Platelet Count 270 10^3/uL (150-450); Red Blood Count 5.34 10^6/uL (4.70-6.10); White Blood Count 6.0 10^3/uL (4.0-11.0)
[2025-01-11 08:06] LABS: Alanine Aminotransferase 43 U/L (16-63); Albumin Globulin Ratio 1.1; Albumin Level 3.7 g/dL (3.4-5.0); Alkaline Phosphatase 64 U/L (46-116); Anion Gap 11.0; Aspartate Amino Transferase 20 U/L (15-37); Blood Urea Nitrogen 19.0 mg/dL (7.0-18.0); Calcium 8.7 mg/dL (8.5-10.1); Carbon Dioxide 31.7 mmol/L (21.0-32.0); Chloride 102 mmol/L (98-107); Cholesterol 163 mg/dL (<=200); Estimated GFR (African America >60 (>=60 mL/min/1.73m^2); Estimated GFR (Non-African Ame >60 (>=60 mL/min/1.73m^2); Globulin 3.4 g/dL; Glucose 105 mg/dL (74-106); HDL Cholesterol 40 mg/dL (40-60); Potassium 3.7 mmol/L (3.5-5.1); Sodium 141 mmol/L (136-145); Total Protein 7.1 g/dL (6.4-8.2); Triglycerides 97 mg/dL (<=150); VLDL CHOLESTEROL 19.4 mg/dL
== END 2025-01-11 06:53 | disposition home or self-care (01) ==
LOC: LAB 06:53
PROVIDERS: PCP Internal Medicine; Visit Provider Internal Medicine
DX: Z00.00 Encounter for general adult medical examination without abnormal findings (principal); Z12.5 Encounter for screening for malignant neoplasm of prostate; I10 Essential (primary) hypertension
CPT/HCPCS: 36415; 80053; 80061; 85025; G0103